=== PATIENT | female | born 1950 | race Caucasian/White ===

== ENCOUNTER 2018-05-13 16:43 | Inpatient (IN) | payer OTHER, MEDICAID ==
[~2018-05-13] VITALS: Ht 152.4 cm; Wt 41.3 kg
--- NOTE | ~2018-05-13 | PR ---
[place], [place] PROGRESS NOTE NAME: NEO MENDOZA UNIT #: [id number] ROOM: 310 DOCTOR: SUE AGUILAR MD BIRTHDATE: [birth year] DOS: 05/17/2018 CHIEF COMPLAINT: "Oh good morning, how are you." SUMMARY OF THE VISIT: The patient was interviewed as she sat in the quiet room in a Ashlyn chair. She engaged readily in brief superficial conversation. She continues to be pleasantly confused. She offered no other complaints. She was much more awake and interactive today than yesterday. MENTAL STATUS: She is alert and oriented to person, possibly place, not to time. Mood does seem to be more euthymic. Affect more appropriate. There is no jamia or hypomania noted. No gross psychotic symptoms. She does process conversation poorly and short term memory is very bad. PLAN: Her RPR did come back positive, so I will check a FTA antibody. I will increase her Exelon patch to its maximum dose of 13.3 mg daily. Continue to engage her in individual and germain milieu activity with the plan then to return to the least restrictive environment when psychiatrically stable. SUE AGUILAR MD CM:PNTRANS [id number] SUE AGUILAR MD 05/17/18 1134 interface
--- NOTE | ~2018-05-13 | PR ---
[place], [place] PROGRESS NOTE NAME: NEO MENDOZA UNIT #: [id number] ROOM: 310 DOCTOR: SUE AGUILAR MD BIRTHDATE: [birth year] DOS: 05/23/2018 CHIEF COMPLAINT: "Good morning and the patient smiled." SUMMARY OF THE VISIT: The patient was interviewed as she was being assisted with breakfast by one of the nurses, upon approach, she smiled. She was more awake this morning than she was yesterday and nurses did report that she was very somnolent and family is concerned by the level of somnolence. Nursing did hold a dose of the Depakote Sprinkles in an effort to perk her up per se and this did seem to have a beneficial effect. MENTAL STATUS: She is alert and oriented with significant time gaps. Mood does still seem to be labile at times, but improving. There are no auditory or visual hallucinations, delusions or paranoia. Short-term memory continues to be problematic. PLAN: Given the fact that her Depakote levels are in the low 70s. I think we have room to lower the dose of the Depakote Sprinkles and still impact positively on her impulsivity and moods. I will therefore lower Depakote Sprinkles to 125 mg 3 times a day and monitor for clinical benefit and an alleviation of the somnolence and sedation. I do not feel that it is safe to return her back to a long-term care facility with this level of somnolence as it does make her a significant fall risk. SUE AGUILAR MD CM:PNTRANS 5 SUE AGUILAR MD 05/23/1856 interface
--- NOTE | ~2018-05-13 | PR ---
[place], [place] PROGRESS NOTE NAME: NEO MENDOZA UNIT #: [id number] ROOM: 310 DOCTOR: SUE AGUILAR MD BIRTHDATE: [birth year] DOS: 05/21/2018 CHIEF COMPLAINT: "Oh good morning." SUMMARY OF THE VISIT: The patient was interviewed as she was resting quietly in bed. She engaged readily in conversation. She reports no problems. She slept well, ate well, is feeling a little tired now, otherwise she states that she has been treated very well here and notes no other issue. She was pleasant and cooperative for the most part. MENTAL STATUS: She is alert and oriented to person, not to place or time. Mood does seem to be euthymic. Affect appropriate. There is no jamia or hypomania. There is no gross psychosis. Short term memory is poor, otherwise she is intact. PLAN: I will maintain her current psychotropic regimen, engage in individual and germain milieu activity, returning then to the least restrictive environment when psychiatrically stable. SUE AGUILAR MD CM:PNTRANS [id number] SUE AGUILAR MD 05/21/18 1147 interface
--- NOTE | ~2018-05-13 | PR ---
[place], [place] PROGRESS NOTE NAME: NEO MENDOZA UNIT #: [id number] ROOM: 310 DOCTOR: SUE AGUILAR MD BIRTHDATE: [birth year] DOS: 05/16/2018 CHIEF COMPLAINT: "Good morning." SUMMARY OF THE VISIT: The patient was interviewed as she was resting quietly in bed. She awoke easily and engaged readily in brief superficial conversation. Most of the responses were 1 or 2 words. She offered no spontaneity. There was also no agitation or aggression. She was somewhat somnolent. There was no tardive dyskinesia or extrapyramidal symptoms noted. MENTAL STATUS: She is alert and oriented to person, unclear place, certainly not time. Mood does seem to be relatively euthymic. There was no hypomania, jamia or gross psychotic symptoms noted. Memory for short term events continues to be problematic. PLAN: I will increase her Namenda to 10 mg b.i.d. with simultaneously increasing the Exelon patch to 9.5 mg a day, attempting to maximize potential benefits in improving and maintaining ADLs, behavior and cognition. Given the amount of daytime somnolence I saw her this morning, I will lower her Risperdal to 1 mg at bedtime, discontinuing the a.m. dose to prevent any further somnolence. We will engage in individual and germain milieu activity, returning then to the least restrictive environment when psychiatrically stable. SUE AGUILAR MD CM:PNTRANS [id number] SUE AGUILAR MD 05/16/18 1014 interface
--- NOTE | ~2018-05-13 | PR ---
[place], [place] PROGRESS NOTE NAME: NEO MENDOZA UNIT #: [id number] ROOM: 310 DOCTOR: SUE AGUILAR MD BIRTHDATE: [birth year] DOS: 05/20/2018 CHIEF COMPLAINT: "Morning." SUMMARY OF THE VISIT: The patient was interviewed as she was resting quietly in bed. She awoke easily and engaged readily in brief superficial conversation. There was no agitation, no mood lability. No aggression noted. She was fairly calm and bright and engaging. MENTAL STATUS: She is alert and oriented to person, possibly place, not to time. Mood does seem to be trending towards euthymia. Affect is more appropriate. There is no jamia or hypomania. No gross psychosis. Short term memory continues to be problematic. PLAN: I will maintain her current psychotropic regimen. Her Depakote level is nicely therapeutic at 71.6. Maintain and support, returning then to the least restrictive environment when psychiatrically stable. SUE AGUILAR MD CM:PNTRANS 0 8 SUE AGUILAR MD 05/20/18818 interface
--- NOTE | ~2018-05-13 | DS ---
[place], [place] DISCHARGE SUMMARY NAME: NEO MENDOZA UNIT #: [id number] ROOM: 310 DOCTOR: SUE AGUILAR MD BIRTHDATE: [birth year] DOS: 05/24/2018 CHIEF COMPLAINT: "No, no, no." HISTORY OF PRESENT ILLNESS: This is a 67-year-old white female who is a resident of [facility] in [place], [place]. The patient has been hitting, kicking, pinching and biting staff. She is very combative and resistive to hands on care. She has been refusing her medications and has been noncompliant with hygiene as well. Staff has had to have her on a 1:1 due to the significant amount of agitation and her increased fall risk. She is admitted to rule out any organic factors, to engage in individual and germain milieu activity and to determine the least restrictive environment to which she could return. SUMMARY OF HOSPITAL COURSE: The patient was admitted to the unit where she was started on Exelon patch and the dose was rapidly increased during her stay to its maximum dose of 13.3 mg a day. Namenda was utilized at 10 mg twice daily to augment the effectiveness of the Exelon. Her Seroquel that she was on was discontinued in lieu of Risperdal and Depakote was also added to help combat her symptomatology. Remeron was utilized at nighttime for the depressive symptoms. With this combination of medication, the patient did have a significant improvement. Her sleep and appetite normalized. She was much more pleasant and cooperative. There was much less mood lability and resistance to care. She tolerated the medicines well and toward the latter part of her stay, both the Risperdal and the Depakote were gradually titrated to their lowest amounts during her stay. Risperdal was gradually lowered to 0.5 mg at bedtime with the hope that this could be discontinued shortly after her readmission to [facility]. Depakote was decreased to 125 mg t.i.d. It continued to be effective and there was a significant improvement, so that she returned to [facility] on 05/24/2018. MENTAL STATUS AT DISCHARGE: She is alert and oriented to self only, unclear hospital, certainly not time. Mood was euthymic. Affect appropriate. She still gave short, simple answers and at times was inappropriate, but she was pleasant and cooperative. Short term memory continued to be problematic. DIAGNOSES: Major depression, recurrent with psychotic features, intermittent explosive disorder and Alzheimer's dementia. DISPOSITION: The patient is returning to [facility]. Her prescriptions have been e-scribed to [facility]. At the time of discharge, there were no acute medical issues and psychiatrically, she was stable. [place], [place] DISCHARGE SUMMARY NAME: NEO MENDOZA UNIT #: [id number] ROOM: 310 DOCTOR: SUE AGUILAR MD BIRTHDATE: [birth year] SUE AGUILAR MD CM:DANYA [id number] SUE AGUILAR MD 05/24/18 1555 interface
--- NOTE | ~2018-05-13 | PR ---
[place], [place] PROGRESS NOTE NAME: NEO MENDOZA UNIT #: [id number] ROOM: 310 DOCTOR: SUE AGUILAR MD BIRTHDATE: [birth year] DOS: 05/22/2018 INTERVAL NOTE CHIEF COMPLAINT: Morning. SUMMARY OF THE VISIT: The patient was sleeping in a Ashlyn chair in the dining area with television on. She engaged readily in brief conversation and seems somewhat somnolent. Nurses report she was awake for breakfast, but did not feel like that she wanted to eat. She does seem somewhat somnolent. Currently, she did not receive a p.r.n. medication. MENTAL STATUS: It is limited by her lack of cooperation. She was somewhat somnolent as I had mentioned previously. PLAN: I will lower her nighttime Risperdal from 1 mg at bedtime to 0.5 mg at bedtime to see if this lessens the morning somnolence. Monitor and support, engage in individual and germain milieu activity, returning to the least restrictive environment when psychiatrically stable. SUE AGUILAR MD CM:PNTRANS [id number] SUE AGUILAR MD 05/23/18 0210 interface
--- NOTE | ~2018-05-13 | PR ---
[place], [place] PROGRESS NOTE NAME: NEO MENDOZA UNIT #: [id number] ROOM: 310 DOCTOR: SUE AGUILAR MD BIRTHDATE: [birth year] DOS: 05/19/2018 CHIEF COMPLAINT: "Oh breakfast is good." SUMMARY OF THE VISIT: The patient was interviewed as she was sitting eating her breakfast. She was fairly independent. She was also sitting there smoking a straw which she has continued to done since her admission, she was pleasant during her interaction with me. There was no agitation, no aggression, no yelling out. She also is not exhibiting any side effects from the medicines themselves as I did not see any sedation, somnolence, extrapyramidal symptoms or tardive dyskinesia. MENTAL STATUS: She is alert and oriented to person, possibly place, but not time. Mood does seem to be trending towards euthymia. Affect is much more appropriate. There is no jamia, hypomania or psychosis. Short term memory has gaps, otherwise she is intact. PLAN: I will recheck a valproic acid level in the a.m. to ensure that it remains therapeutic. Continue to engage in individual and germain milieu activities, returning then to the least restrictive environment when psychiatrically stable. SUE AGUILAR MD CM:PNTRANS [phone] SUE AGUILAR MD 05/19/18 0821 interface
[2018-05-13] MEDS ORDERED: ATIVAN1 MG PO (16:48)
[2018-05-13] MEDS ORDERED: REMERON15 M2 PO (16:49)
[2018-05-13] MEDS ORDERED: ELIQUIS2.5 M1 PO (16:49)
[2018-05-13] MEDS ORDERED: SEROQUEL50 MG PO (16:50)
[2018-05-13] MEDS ORDERED: MELATONIN3 MG PO (16:51)
[2018-05-13] MEDS ORDERED: GLUCOPHAGE1000 MG PO (16:56)
[2018-05-13] MEDS ORDERED: LANOXIN62.5 MCG PO (16:56)
[2018-05-13] MEDS ORDERED: LOPRESSOR25 MG PO (17:00)
[2018-05-13] MEDS ORDERED: TRAD5TAB1 PO ×2 (17:01→17:03)
[2018-05-13] MEDS ORDERED: DEPAKENE250 M2 PO (17:03)
[2018-05-14 07:09] LABS: BASO # 0.1 10*3/uL (0.0-0.1); BASO % 0.8 % (0.0-1.0); EOS % 0.2 % (1.0-4.0); HEMATOCRIT 39.1 % (37.0-47.0); HEMOGLOBIN 12.8 g/dl (12.0-16.0); LYMPH # 2.3 10*3/uL (1.3-4.4); MEAN CELL VOLUME 90.7 fl (81.0-99.0); MEAN CORPUSCULAR HGB 29.7 pg (27.0-31.0); MEAN CORPUSCULAR HGB CONC 32.7 g/dl (33.0-37.0); MEAN PLATELET VOLUME 11.6 fl (9.6-12.3); NEUT # 9.2 10*3/uL (2.3-7.9); NEUT % 72.5 % (47.0-73.0); PLATELET COUNT AUTOMATED 290 10*3/uL (130-400); RED BLOOD COUNT 4.31 10*6/uL (4.10-5.10); RED CELL DISTRI WIDTH 15.5 % (0-14.5); WHITE BLOOD COUNT 12.7 10*3/uL (4.8-10.8)
[2018-05-14 07:19] LABS: ALBUMIN 3.6 gm/dl (3.1-4.5); CREATININE 2.81 mg/dL (0.55-1.02); POTASSIUM 3.1 mmol/L (3.5-5.1); TOTAL PROTEIN 7.5 gm/dL (6.4-8.2)
[2018-05-14 07:29] LABS: DIGOXIN 1.02 ng/ml (0.8-2.0); THYROID STIM HORMONE (HS) 3.21 uIU/ml (0.358-4.75)
[2018-05-14 07:34] VITALS: BP 128/67
[2018-05-14 07:44] LABS: VITAMIN D, 25-HYDROXY 20.9 ng/mL (30-100)
[2018-05-14 19:08] VITALS: BP 130/72
[2018-05-15 07:31] VITALS: BP 128/69
[2018-05-15 10:27] LABS: BASO # 0.1 10*3/uL (0.0-0.1); BASO % 0.4 % (0.0-1.0); EOS # 0.1 10*3/uL (0.0-0.4); EOS % 0.4 % (1.0-4.0); HEMATOCRIT 39.5 % (37.0-47.0); HEMOGLOBIN 13.2 g/dl (12.0-16.0); LYMPH # 2.2 10*3/uL (1.3-4.4); LYMPH % 16.5 % (27.0-41.0); MEAN CELL VOLUME 90.8 fl (81.0-99.0); MEAN CORPUSCULAR HGB 30.3 pg (27.0-31.0); MEAN CORPUSCULAR HGB CONC 33.4 g/dl (33.0-37.0); MEAN PLATELET VOLUME 11.1 fl (9.6-12.3); MONO # 0.7 10*3/uL (0.1-1.0); MONO % 5.6 % (3.0-9.0); NEUT # 10.3 10*3/uL (2.3-7.9); NEUT % 76.8 % (47.0-73.0); PLATELET COUNT AUTOMATED 285 10*3/uL (130-400); RED BLOOD COUNT 4.35 10*6/uL (4.10-5.10); RED CELL DISTRI WIDTH 14.9 % (0-14.5); WHITE BLOOD COUNT 13.3 10*3/uL (4.8-10.8)
[2018-05-15 10:43] LABS: ALBUMIN 3.4 gm/dl (3.1-4.5); CREATININE 1.46 mg/dL (0.55-1.02); POTASSIUM 3.7 mmol/L (3.5-5.1); TOTAL PROTEIN 7.3 gm/dL (6.4-8.2)
[2018-05-15 19:12] VITALS: BP 124/70
[2018-05-16 07:58] VITALS: BP 159/87
[2018-05-16 19:58] VITALS: BP 133/86
[2018-05-17 07:39] VITALS: BP 148/60
[2018-05-17 15:52] LABS: BILIRUBIN NEGATIVE (NEGATIVE); BLOOD 1+ (NEGATIVE); CLARITY CLOUDY (CLEAR); COLOR YELLOW (YELLOW); GLUCOSE TRACE (NEGATIVE); KETONE TRACE (NEGATIVE); LEUKO ESTERASE 3+ (NEGATIVE); NITRITE NEGATIVE (NEGATIVE); UROBILINOGEN 0.2 E.U./dl (0.2-1.0)
[2018-05-17 15:58] LABS: BACTERIA 2+; WBC TNTC wbc/hpf (0-5)
[2018-05-17 20:16] VITALS: BP 148/60
[2018-05-18 07:30] VITALS: BP 136/68
[2018-05-18 19:17] VITALS: BP 141/70
[2018-05-19 07:18] VITALS: BP 104/82
[2018-05-19 19:11] VITALS: BP 112/72
[2018-05-20 07:20] VITALS: BP 138/74
[2018-05-20 19:11] VITALS: BP 176/80
[2018-05-21 08:22] VITALS: BP 102/86
[2018-05-21 19:36] VITALS: BP 138/78
[2018-05-22 07:25] VITALS: BP 146/65
[2018-05-22 19:49] VITALS: BP 137/74
[2018-05-23 06:41] VITALS: BP 135/65
[2018-05-23 19:59] VITALS: BP 122/79
[2018-05-24 07:50] VITALS: BP 107/52
[2018-05-24] MEDS ORDERED: MIRTAZAPINE15 M2 PO (10:14)
[2018-05-24] MEDS ORDERED: MEMANTINE HCL10 MG PO (10:14)
[2018-05-24] MEDS ORDERED: EXELON13.3 MG/21 T (10:14)
[2018-05-24] MEDS ORDERED: RISPERIDONE0.5 MG PO (10:14)
[2018-05-24] MEDS ORDERED: DIVALPROEX SOD125 M1 PO (10:14)
[2018-05-24] MEDS ORDERED: Vitamin D PO (13:04)
[2018-05-24 19:03] VITALS: BP 139/67
== END 2018-05-24 19:54 | disposition other institution (70) | DRG 883 ==
LOC: 3N 16:43
PROVIDERS: Internal Medicine; Psychiatry & Neurology Psychiatry
DX: F63.81 Intermittent explosive disorder (principal); F02.81 Dementia in other diseases classified elsewhere, unspecified severity, with behavioral disturbance; Z68.1 Body mass index [BMI] 19.9 or less, adult; G30.9 Alzheimer's disease, unspecified; F33.3 Major depressive disorder, recurrent, severe with psychotic symptoms; R63.6 Underweight; J44.9 Chronic obstructive pulmonary disease, unspecified; E78.5 Hyperlipidemia, unspecified; M19.90 Unspecified osteoarthritis, unspecified site; I10 Essential (primary) hypertension; I48.0 Paroxysmal atrial fibrillation; E11.8 Type 2 diabetes mellitus with unspecified complications; B37.3 Candidiasis of vulva and vagina; Z87.440 Personal history of urinary (tract) infections; Z88.0 Allergy status to penicillin; Z79.84 Long term (current) use of oral hypoglycemic drugs; Z79.899 Other long term (current) drug therapy; Z79.01 Long term (current) use of anticoagulants

== ENCOUNTER 2018-06-09 17:34 | Inpatient (IN) | payer OTHER, MEDICAID ==
[~2018-06-09] VITALS: Ht 152.4 cm; Wt 41.3 kg
--- NOTE | ~2018-06-09 | PR ---
[place], [place] PROGRESS NOTE NAME: NEO MENDOZA I UNIT #: [id number] ROOM: 310 DOCTOR: SUE AGUILAR MD BIRTHDATE: [birth year] DOS: 06/13/2018 INTERVAL NOTE CHIEF COMPLAINT: "What's your name?" SUMMARY OF THE VISIT: The patient was interviewed as she was walking nonstop up and down the hallway with one of the nursing students. She did not stop, but only for a brief second to engage in a superficial conversation with me and was once again pacing the yee. I continued to watch her throughout my rounds, walking up and down the yee at a rather rapid speed. She was very difficult to redirect or to slow down. MENTAL STATUS: She is alert and oriented to self, unclear place, certainly not time. Mood is labile. Affect inappropriate. Short-term memory is extremely poor. PLAN: I am going to simplify her drug regimen, discontinuing the Remeron as I do not necessarily see depression. I will stop the Risperdal as it is possibly causing her to have some akathisia, which could be further exacerbating her desire to pace. Instead, I will use Seroquel 25 mg 3 times daily to stabilize her mood with a low extrapyramidal symptom side effect profile. We will monitor and support, engage in individual and germain milieu activity, returning to the least restrictive environment when psychiatrically stable. SUE AGUILAR MD CM:PNTRANS SUE AGUILAR MD 06/13/18 0855 interface
--- NOTE | ~2018-06-09 | DS ---
[place], [place] DISCHARGE SUMMARY NAME: NEO MENDOZA I UNIT #: [id number] ROOM: 310 DOCTOR: SUE AGUILAR MD BIRTHDATE: [birth year] DOS: 06/16/2018 CHIEF COMPLAINT: "I remember you." HISTORY OF PRESENT ILLNESS: This is a 67-year-old white female who resides at [facility] who was readmitted to the [facility] due to significant alteration in mental status. The patient had become increasingly both verbally and physically aggressive towards staff. She had been exit seeking. When attempts were made to redirect, the patient became physically combative with staff, hitting them in the head and kicking them. Attempts to redirect were met with her further escalating to the point where she was putting both herself and others at substantial risk of harm. She is admitted now to the [facility] to rule out any organic factors, to re-stabilize on medication and to determine the least restrictive environment to which she could return. SUMMARY OF HOSPITAL COURSE: The patient was admitted to the unit where her Remeron 15 mg at bedtime was discontinued in lieu of Risperdal 0.5 mg in the morning and 1 mg at night, Namenda 10 mg b.i.d. and Exelon patch 13.3 mg a day were maintained. Her Depakote, which was at a dose of 1000 mg a day was increased to 1500 mg a day to bring the level more into the therapeutic range. The patient continued to exhibit extreme mood lability and pace the halls almost nonstop, it was feared that the Risperdal could be feeling akathisia, so it was discontinued in lieu of Seroquel 25 mg 3 times daily. Within the first 24 hours of starting the Seroquel, the patient did have one minor fall without injury, most likely related to some of the orthostasis being caused from the Seroquel. After this; however, she exhibited no other side effects, no sedation or somnolence was noted and her behavior came under much better control. She was more redirectable and was able to sit for longer periods of time and engage in activities. Her behavior had improved to the point where she was no longer physically aggressive with staff and was able to attend to ADLs with a lot of assistance. She slept well through the night and her appetite did improve. She improved sufficiently to return to a long-term care facility within the same system, this being [facility] in [place], [place]. MENTAL STATUS AT DISCHARGE: The patient was alert and oriented to self only. Certainly, not to place or time. Mood did seem to be more euthymic. Affect is much more appropriate. Her responses tended to be short and simple and at times nonsensical, at times she did not always respond to the questions asked of her. She did not exhibit any signs suggestive of hypomania, jamia or psychosis. There were no overt auditory or visual hallucinations. No delusional system was voiced. No paranoia was present. She did process conversations extremely slowly and her responses were rather sparse. Short term and intermediate memory were both impaired. DIAGNOSIS UPON DISCHARGE: Intermittent explosive disorder and Alzheimer's dementia. DISPOSITION: The patient is being admitted to [facility] in [place], [place]. [place], [place] DISCHARGE SUMMARY NAME: NEO MENDOZA I UNIT #: [id number] ROOM: 310 DOCTOR: SUE AGUILAR MD BIRTHDATE: [birth year] PLAN: All of her prescriptions have been E-scribed to [facility]. At the time of discharge, there was no acute medical issues. She was psychiatrically stable. SUE AGUILAR MD CM:DANYA 0930 SUE AGUILAR MD 06/16/18 9900 interface
--- NOTE | ~2018-06-09 | PR ---
[place], [place] PROGRESS NOTE NAME: NEO MENDOZA I UNIT #: [id number] ROOM: 310 DOCTOR: SUE AGUILAR MD BIRTHDATE: [birth year] DOS: 06/15/2018 INTERVAL NOTE CHIEF COMPLAINT: "Oh good morning." SUMMARY OF THE VISIT: The patient was interviewed as she was resting in bed. She was with staff who was attempting to assist her to get up and use the restroom and also change her clothes. She smiled readily as I approached and engaged in brief superficial conversation. There was no agitation or aggression, no mood lability. I also did not see any sedation, somnolence, extrapyramidal symptoms or tardive dyskinesia. MENTAL STATUS: She remains alert and oriented to self, unclear place, certainly not time. Mood this morning was fairly euthymic. Affect appropriate. There is no jamia, hypomania or gross psychotic symptoms. Short-term memory continues to be problematic. PLAN: Her valproic acid level is therapeutic at 64.5, so I will continue her on her current dose of Depakote. I will renew her Ativan p.r.n. in case she requires intervention. Continue her current psychotropics as is, monitor and support, engage in individual and germain milieu activity, returning to the least restrictive environment when psychiatrically stable. SUE AGUILAR MD CM:PNTRANS 2 SUE AGUILAR MD 06/15/18 0921 interface
--- NOTE | ~2018-06-09 | PR ---
[place], [place] PROGRESS NOTE NAME: NEO MENDOZA I UNIT #: [id number] ROOM: 310 DOCTOR: SUE AGUILAR MD BIRTHDATE: [birth year] DOS: 06/14/2018 INTERVAL NOTE CHIEF COMPLAINT: "I am okay." SUMMARY OF THE VISIT: The patient was interviewed as she was actually sitting next to one of the nurses in the dining area. Earlier in the day, I had watched her pace almost to the point of running nonstop up and down the yee, accompanied by the nurse. Staff notes that she is constantly on the go, but she redirects fairly readily and has not been verbally or physically combative. She did have some mild orthostasis and did have a near fall yesterday with the initiation of the Seroquel, but this seems to have dissipated today. I will have staff recheck orthostatic vital signs today and monitor her accordingly. MENTAL STATUS: She is alert and oriented to self, unclear place, certainly not time. Mood does seem to be fairly euthymic this morning. There was no jamia, hypomania or gross psychotic symptoms. She does process slowly and short-term memory remains poor. PLAN: I will check a valproic acid level in the a.m. and as mentioned earlier, will do orthostatic blood pressure and pulse q. shift today, monitor and support. SUE AGUILAR MD CM:PNTRANS [id number] SUE AGUILAR MD 06/14/18 162 interface
[~2018-06-09 17:34] MED LIST: ATIVAN1 MG PO; DEPAKENE250 M2 PO; DIVALPROEX SOD125 M1 PO; ELIQUIS2.5 M1 PO; EXELON13.3 MG/21 T; GLUCOPHAGE1000 MG PO; LANOXIN62.5 MCG PO; LOPRESSOR25 MG PO; MELATONIN3 MG PO; MEMANTINE HCL10 MG PO; MIRTAZAPINE15 M2 PO; REMERON15 M2 PO; RISPERIDONE0.5 MG PO; SEROQUEL50 MG PO; TRAD5TAB1 PO; Vitamin D PO
[2018-06-09] MEDS ORDERED: RISPERDAL0.5 MG PO (20:12)
[2018-06-09] MEDS ORDERED: ATIVAN0.5 MG PO (20:14)
[2018-06-09] MEDS ORDERED: TRAD5TAB1 PO (20:15)
[2018-06-09] MEDS ORDERED: DEPAKOTE SPRIN125 MG PO ×2 (20:16→20:17)
[2018-06-09 22:47] VITALS: BP 142/88
[2018-06-09 22:48] VITALS: BP 142/88
[2018-06-10 00:08] VITALS: BP 142/82
[2018-06-10 06:22] LABS: BASO % 0.5 % (0.0-1.0); EOS # 0.1 10*3/uL (0.0-0.4); EOS % 1.8 % (1.0-4.0); HEMATOCRIT 33.2 % (37.0-47.0); HEMOGLOBIN 10.6 g/dl (12.0-16.0); LYMPH # 1.9 10*3/uL (1.3-4.4); LYMPH % 24.7 % (27.0-41.0); MEAN CELL VOLUME 95.1 fl (81.0-99.0); MEAN CORPUSCULAR HGB 30.4 pg (27.0-31.0); MEAN CORPUSCULAR HGB CONC 31.9 g/dl (33.0-37.0); MONO # 0.8 10*3/uL (0.1-1.0); MONO % 9.8 % (3.0-9.0); NEUT # 4.9 10*3/uL (2.3-7.9); NEUT % 62.9 % (47.0-73.0); PLATELET COUNT AUTOMATED 235 10*3/uL (130-400); RED BLOOD COUNT 3.49 10*6/uL (4.10-5.10); RED CELL DISTRI WIDTH 16.8 % (0-14.5); WHITE BLOOD COUNT 7.7 10*3/uL (4.8-10.8)
[2018-06-10 06:48] LABS: ALBUMIN 2.7 gm/dl (3.1-4.5); ALKALINE PHOSPHATASE 67 U/L (45-117); BUN 17 mg/dl (7-24); CHLORIDE 107 mmol/L (98-107); CHOLESTEROL 194 mg/dL (<200); CREATININE 0.69 mg/dL (0.55-1.02); HDL CHOLESTEROL 59 mg/dl (40-60); LDL CHOLESTEROL 117 mg/dL (9-159); POTASSIUM 3.7 mmol/L (3.5-5.1); SGOT/AST 22 IU/L (3-35); SGPT/ALT 21 U/L (12-78); SODIUM 141 mmol/L (136-145); TOTAL PROTEIN 6.2 gm/dL (6.4-8.2); TRIGLYCERIDES 90 mg/dl (<150); VALPROIC ACID (DEPAKENE) 12.8 ug/ml (50-100); VLDL CHOLESTEROL 18 mg/dL (6-40)
[2018-06-10 06:58] LABS: DIGOXIN 0.56 ng/ml (0.8-2.0)
[2018-06-10 07:43] VITALS: BP 140/72
[2018-06-10 08:28] LABS: VITAMIN D, 25-HYDROXY 19.2 ng/mL (30-100)
[2018-06-10 20:28] VITALS: BP 130/78
[2018-06-11 07:31] VITALS: BP 135/72
[2018-06-11 09:56] LABS: BILIRUBIN NEGATIVE (NEGATIVE); BLOOD NEGATIVE (NEGATIVE); CLARITY SL CLOUDY (CLEAR); COLOR YELLOW (YELLOW); GLUCOSE 3+ (NEGATIVE); KETONE NEGATIVE (NEGATIVE); LEUKO ESTERASE TRACE (NEGATIVE); NITRITE NEGATIVE (NEGATIVE); UROBILINOGEN 0.2 E.U./dl (0.2-1.0)
[2018-06-11 10:04] LABS: BACTERIA 1+; WBC 51-100 wbc/hpf (0-5)
[2018-06-11 10:05] LABS: EPITHELIAL CELLS 15-20
[2018-06-11 20:00] VITALS: BP 133/75
[2018-06-12 07:09] VITALS: BP 140/70
[2018-06-12 20:00] VITALS: BP 108/77
[2018-06-13 09:56] VITALS: BP 140/70
[2018-06-13 20:05] VITALS: BP 111/88
[2018-06-14 08:46] VITALS: BP 104/72
[2018-06-14 19:42] VITALS: BP 127/84
[2018-06-14 21:25] VITALS: BP 122/80
[2018-06-15 07:08] VITALS: BP 121/72
[2018-06-15 19:49] VITALS: BP 120/80
[2018-06-16 07:45] VITALS: BP 120/82
[2018-06-16] MEDS ORDERED: DIVALPROEX SOD125 M1 PO (09:01)
[2018-06-16] MEDS ORDERED: QUETIAPINE FUMA25 MG PO (09:01)
[2018-06-16] MEDS ORDERED: MEMANTINE HCL10 MG PO (09:01)
[2018-06-16] MEDS ORDERED: EXELON13.3 MG/21 T (09:01)
== END 2018-06-16 14:20 | disposition other institution (70) | DRG 883 ==
LOC: 3N 17:34
PROVIDERS: Psychiatry & Neurology Psychiatry
DX: F63.81 Intermittent explosive disorder (principal); G30.9 Alzheimer's disease, unspecified; E43 Unspecified severe protein-calorie malnutrition; F02.81 Dementia in other diseases classified elsewhere, unspecified severity, with behavioral disturbance; R00.0 Tachycardia, unspecified; E11.22 Type 2 diabetes mellitus with diabetic chronic kidney disease; M19.90 Unspecified osteoarthritis, unspecified site; E11.9 Type 2 diabetes mellitus without complications; N18.3 Chronic kidney disease, stage 3 (moderate); E55.9 Vitamin D deficiency, unspecified; F32.9 Major depressive disorder, single episode, unspecified; R13.12 Dysphagia, oropharyngeal phase; R29.6 Repeated falls; F25.9 Schizoaffective disorder, unspecified; I48.2 Chronic atrial fibrillation; I12.9 Hypertensive chronic kidney disease with stage 1 through stage 4 chronic kidney disease, or unspecified chronic kidney disease; E78.5 Hyperlipidemia, unspecified; J44.9 Chronic obstructive pulmonary disease, unspecified; Z88.0 Allergy status to penicillin; Z68.1 Body mass index [BMI] 19.9 or less, adult